=== PATIENT | female | born 1965 | race Asian ===

== ENCOUNTER → 2020-06-04 10:35 | Outpatient (BNVA) | payer OTHER, SELFPAY | PROVIDERS: Visit Provider Internal Medicine Endocrinology, Diabetes & Metabolism ==

== ENCOUNTER → 2020-09-20 10:55 | Outpatient (BNVA) | payer OTHER, SELFPAY | PROVIDERS: PCP Nurse Practitioner Gerontology; Visit Provider Internal Medicine Endocrinology, Diabetes & Metabolism | DX: E11.65 Type 2 diabetes mellitus with hyperglycemia (principal); E11.21 Type 2 diabetes mellitus with diabetic nephropathy; E11.3293 Type 2 diabetes mellitus with mild nonproliferative diabetic retinopathy without macular edema, bilateral; E11.22 Type 2 diabetes mellitus with diabetic chronic kidney disease; I12.9 Hypertensive chronic kidney disease with stage 1 through stage 4 chronic kidney disease, or unspecified chronic kidney disease; N18.30 Chronic kidney disease, stage 3 unspecified; E78.5 Hyperlipidemia, unspecified | CPT/HCPCS: 82947; 99212 ==

== ENCOUNTER → 2021-01-27 11:03 | Outpatient (BNVA) | payer OTHER, SELFPAY | PROVIDERS: PCP Nurse Practitioner Gerontology; Visit Provider Nurse Practitioner Gerontology ==

== ENCOUNTER → 2021-06-02 11:01 | Outpatient (BNVA) | payer OTHER, SELFPAY | PROVIDERS: PCP Nurse Practitioner Gerontology; Visit Provider Internal Medicine Endocrinology, Diabetes & Metabolism | DX: E11.65 Type 2 diabetes mellitus with hyperglycemia (principal); Z79.84 Long term (current) use of oral hypoglycemic drugs | CPT/HCPCS: 82947; 83036; 99212 ==

== ENCOUNTER → 2022-08-28 08:55 | Outpatient (BNVA) | payer OTHER, SELFPAY | PROVIDERS: PCP Nurse Practitioner Gerontology; Visit Provider Internal Medicine Endocrinology, Diabetes & Metabolism | DX: E11.65 Type 2 diabetes mellitus with hyperglycemia (principal); Z79.84 Long term (current) use of oral hypoglycemic drugs | CPT/HCPCS: 82947; 83036; 99212 ==

== ENCOUNTER 2023-06-16 09:09 | Outpatient (REF) | payer OTHER, SELFPAY ==
[2023-06-16 12:03] LABS: Anion Gap 14 (12-20); Blood Urea Nitrogen 49 mg/dL (9-16); Calcium 9.2 mg/dL (8.4-10.2); Carbon Dioxide 25 mmol/L (22-29); Chloride 106 mmol/L (96-108); Cholesterol 252 mg/dL (<200); Estimated Glomerular Filt Rate 30; Glucose Random 112 mg/dL (60-115); HDL Cholesterol 63 mg/dL (>40); LDL Cholesterol Calculated 156 mg/dL (<100); Sodium 140 mmol/L (135-145); Triglycerides 169 mg/dL (<150)
[2023-06-16 12:12] LABS: Creatinine Urine 112.73 mg/dL
[2023-06-16 12:28] LABS: Microalbum/Creatinine Ratio Ur 691.9 ug/mg cr (<30)
[2023-06-20 21:43] LABS: Glutamic acid decarboxylase Ab <5 IU/mL (<5)
== END 2023-06-16 09:10 | disposition home or self-care (01) ==
LOC: HO.10HDL 09:09
PROVIDERS: Visit Provider Internal Medicine Endocrinology, Diabetes & Metabolism
DX: E11.65 Type 2 diabetes mellitus with hyperglycemia (principal)
CPT/HCPCS: 36415; 80048; 80061; 82043; 82570; 86341

== ENCOUNTER 2023-07-01 09:24 | Outpatient (AMB) | payer OTHER, SELFPAY ==
[2023-07-01 09:26] VITALS: BP 148/62; PULSE 68; BMI 18.9
--- NOTE | 2023-07-01 09:26 | A.OFFVIS_ITS ---
Vital Signs 07/01/23 09:26 Height 5 ft 2 in Weight 103 lb 9.876 oz BMI 18.9 BP 148/62 H Blood Pressure Location Lt brachial Position Sitting Pulse 68 Pulse Source Pulse Oximeter Intake Visit Reasons: DM-lvm Intake Note: Patient presents today to follow up on D2MT. Last Diabetic Eye exam: 04/2023 Last Podiatry Visit: 04/2023 Random Glucose: 115 mg/dl HgA1c: 7.5% Radio Assembler Required: No Accompanied by: Self / Same As Patient Allergies lactose Allergy (Unknown, Verified 07/01/23 09:32) Unknown Medication List - Last Reconciled 07/01/23 by Regan Martinez MD alcohol swabs (Alcohol Prep Pads) 150 pad topical BID blood sugar diagnostic (FreeStyle Lite Strips) 1 strip miscellaneous QID 30 days blood-glucose meter (FreeStyle Lite Meter kit) As directed estradiol (Yuvafem) 10 mcg vaginal glimepiride 2 mg (2 x 1 mg) PO DAILY lancets (FreeStyle Lancets) 3 TIMES A DAY lancets (FreeStyle Lancets) USE DIRECTED 4 TIMES A DAY linagliptin (Tradjenta) 5 mg PO DAILY lisinopril 10 mg PO DAILY loratadine 10 mg PO DAILY pravastatin 20 mg PO BEDTIME HPI Comments Details: 57-year-old female today for follow-up visit, for diabetes management. She is feeling well. She has no complaints. Unfortunately, she did not bring a meter or a log book to follow-up visit She has DM type 2 diagnosed 2014. She has other PMH of asthma, hypertension, hyperlipidemia, CKD 3 . She is Currently on Glimepiride 2 mg daily, Tradjenta 5 mg daily. Metformin was stopped by PCP due to decrease GFR. She has diabetic retinopathy, and nephropathy. Last ophthalmology evaluation: needs to make appt retinopathy is stable. Pending note for review. She has nocturia 1 to 2 times, denies polydipsia, polyuria, denies numbness, tingling. Has hypoglycemia rare . Drink OJ to correct. Waits 10 min to check Laboratory Tests 12/12/18 12/12/18 12/12/18 10:22 11:51 11:51 Hgb Hct Sodium 139 Potassium 5.1 Creatinine 1.53 H POC Glucose Hgb A1c Fingerstick 8.0 Fructosamine Calcium 9.4 Triglycerides 139 Cholesterol 214 LDL Cholesterol Direct LDL Cholesterol, Calc 125 HDL Cholesterol 62 Ur Random Creatinine 33.38 Ur Random Microalbumin 28.0 Microalb/Creat Ratio 83.8 12/12/18 12/12/18 02/06/19 11:51 11:51 11:06 Hgb 10.6 L Hct 31.8 L Sodium Potassium Creatinine POC Glucose 159 H Hgb A1c Fingerstick Fructosamine 324 H Calcium Triglycerides Cholesterol LDL Cholesterol Direct 117 H LDL Cholesterol, Calc HDL Cholesterol Ur Random Creatinine Ur Random Microalbumin Microalb/Creat Ratio FOR[facility]LY [facility], [facility] Medical History (Updated 06/04/20 @ 10:56 by Manuelito Marcelino MD) CKD stage 3 due to type 2 diabetes mellitus Dyslipidemia Hypertension Non-proliferative diabetic retinopathy, both eyes Diabetic nephropathy associated with type 2 diabetes mellitus Diabetes type 2, uncontrolled Surgical History Hx of eye surgery Family History Father Lung cancer Mother Diabetes mellitus Heart disease Family/Other Pancreatic cancer Social History Household Members: Children Alcohol intake: never Patient Tobacco Use Status: Never used Tobacco Physical Exam Absence of Cushingoid features. Absence of acromegalic features. Neck exam reveals nl size thyroid about 15 gms. No thyroid nodules palpable. No carotid bruits present. Lungs CTA. Heart S1 S2, Reg R/R. No M/R/ G. Skin exam reveals absence of vitiligo or acanthosis nigricans. Abdominal exam reveals Soft NT/ND with NA BS. No organomegaly present. Neck Other: . Extrem Other: Visual exam of foot performed. No ulcerations or open lesions. R 1st toe with blister No onchomycosis, no callouses.Pulses 2 + distally Sensation intact to monofilament exam. Vibratory sensation sensed is decreased with 128 Hz tuning fork. Results AMB Hemoglobin A1c AMB Hemoglobin A1c 7.5 % Last Edit by SHAYNA Munoz on 07/01/23 09:45 Assessment & Plan Assessment & Plan (1) Diabetes type 2, uncontrolled: Code(s): E11.65 - Type 2 diabetes mellitus with hyperglycemia Category: Medical Plan: This is a 57-year-old female with a history of type 2 diabetes being treated with glimepiride and Tradjenta with good but not adequate glycemic control and known microvascular complications namely retinopathy and CKD stage IIIB. Plan is that the patient check her point of cares pre and post meals and debride the glucometer with her to follow-up appointments. I attempted to prescribe Nydia 3. Will switch glimepiride and Tradjenta to Ozempic 0.25 mg Q weekly as well as Farxiga 5 mg q.d. for renal protection. Went over side effects of Ozempic including but not limited to nausea, vomiting and rare risk of pancreatitis and side effects of Farxiga including but not limited to dehydration, DKA as well as Monroe's gangrene . Will have to adjust regimen plan based on insurance coverage as well for above. Patient is going to meet with meter tester in the next week to learn how to place the Nydia sensor and also how to inject the Ozempic (2) Dyslipidemia: Code(s): E78.5 - Hyperlipidemia, unspecified Category: Medical Plan: LDL not at goal on pravastatin 20 mg. Will switch pravastatin to atorvastatin 20 mg recheck lipid profile in 2 months Orders: Orders AMB Hemoglobin A1c Today E11.65 - Type 2 diabetes mellitus with hyperglycemia, Z13.9 - Encounter for screening, unspecified Basic Metabolic Panel 10 Days E11.65 - Type 2 diabetes mellitus with hyperglycemia Lipid Panel 2 Months E11.65 - Type 2 diabetes mellitus with hyperglycemia Medications: New semaglutide (Ozempic) for 4 weeks 0.25 mg (0.368 mL) subcut QWEEK 3 mL 4RF dapagliflozin propanediol (Farxiga) 5 mg PO DAILY 30 tabs 4RF atorvastatin 20 mg PO DAILY 30 tabs 5RF blood-glucose sensor (FreeStyle Nydia 3 Sensor device) As directed change every 14 days 2 ea 5RF Discontinued glimepiride Discontinued Reason: Doctor's Order 2 mg (2 x 1 mg) PO DAILY 180 tabs 1RF E11.65 - Type 2 diabetes mellitus with hyperglycemia linagliptin (Tradjenta) Discontinued Reason: Doctor's Order 5 mg PO DAILY 30 tabs 3RF E11.65 - Type 2 diabetes mellitus with hyperglycemia pravastatin Discontinued Reason: Doctor's Order 20 mg PO BEDTIME 90 tabs 1RF E11.65 - Type 2 diabetes mellitus with hyperglycemia Coding Level of Care Code Est Pt Level 4 (69877) Diagnoses Diabetes type 2, uncontrolled E11.65 Dyslipidemia E78.5
[2023-07-01 09:39] LABS: Glucose, Whole Blood 115 mg/dL (60-115)
== END 2023-07-01 10:20 | disposition home or self-care (01) ==
PROVIDERS: PCP Nurse Practitioner Gerontology; Visit Provider Internal Medicine Endocrinology, Diabetes & Metabolism
DX: E11.65 Type 2 diabetes mellitus with hyperglycemia (principal); E78.5 Hyperlipidemia, unspecified; Z13.9 Encounter for screening, unspecified
CPT/HCPCS: 99214

== ENCOUNTER → 2023-07-01 09:24 | Outpatient (BNVA) | payer OTHER, SELFPAY | PROVIDERS: PCP Nurse Practitioner Gerontology; Visit Provider Internal Medicine Endocrinology, Diabetes & Metabolism | DX: E11.65 Type 2 diabetes mellitus with hyperglycemia (principal); E11.22 Type 2 diabetes mellitus with diabetic chronic kidney disease; N18.32 Chronic kidney disease, stage 3b; E11.319 Type 2 diabetes mellitus with unspecified diabetic retinopathy without macular edema; E78.5 Hyperlipidemia, unspecified; Z79.84 Long term (current) use of oral hypoglycemic drugs | CPT/HCPCS: 82947; 83036; 99212 ==

== ENCOUNTER 2023-07-07 15:45 | Outpatient (AMB) | payer OTHER, SELFPAY ==
--- NOTE | 2023-07-07 16:32 | A.OFFVIS_ITS ---
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: No Accompanied by: Self / Same As Patient Allergies lactose Allergy (Unknown, Verified 07/01/23 09:32) Unknown HPI Comprehensive Diabetes Asmnt Most Recent Diabetes Results: Microalb/Creat Ratio 691.9 ug/mg cr (<30) H 06/16/23 Cholesterol 252 mg/dL (<200) H 06/16/23 HDL Cholesterol 63 mg/dL (>40) 06/16/23 Triglycerides 169 mg/dL (<150) H 06/16/23 Creatinine 1.74 mg/dL (0.5-1.4) H 06/16/23 Blood Urea Nitrogen 49 mg/dL (9-16) H 06/16/23 Sodium 140 mmol/L (135-145) 06/16/23 Potassium 5.0 mmol/L (3.3-5.1) 06/16/23 Chloride 106 mmol/L (96-108) 06/16/23 Carbon Dioxide 25 mmol/L (22-29) 06/16/23 Calcium 9.2 mg/dL (8.4-10.2) 06/16/23 [facility] Medical History (Updated 06/04/20 @ 10:56 by Manuelito Marcelino MD) CKD stage 3 due to type 2 diabetes mellitus Dyslipidemia Hypertension Non-proliferative diabetic retinopathy, both eyes Diabetic nephropathy associated with type 2 diabetes mellitus Diabetes type 2, uncontrolled Surgical History Hx of eye surgery Family History Father Lung cancer Mother Diabetes mellitus Heart disease Family/Other Pancreatic cancer Social History Household Members: Children Alcohol intake: never Patient Tobacco Use Status: Never used Tobacco Assessment & Plan Assessment & Plan (1) Diabetes type 2, uncontrolled: Code(s): E11.65 - Type 2 diabetes mellitus with hyperglycemia Plan: Insulin/Incretin?Mimetic Education visit Patient Education: Patient was instructed and provided with demonstration of the following: Insulin action and Incretin Mimetics medication storage how to set up medication pen/or syringe and vial Handwashing insulin injection site rotation Site rotation recognizing hypertrophy Testing blood glucose Removing and disposing needle from insulin pen Safe disposal of sharps Target blood sugar Signs/ symptoms/treatment of hypoglycemia/hyperglycemia expiration of open insulin pen Patient verbalized understanding of education provided and was able to demonstrate proper use of inject into injection pillow Reviewed rule of 15s to treat glucose under 70 mg/dL Patient will start Ozempic 0.25 mg for 4 weeks, after 4 weeks she will increase to 0.5 mg All questions were answered and patient was advised to contact the office with any questions or concerns. Patient at visit to set up an insert Nydia 3, will set up sharing at next visit Instructed patient sensors water proof you can shower, or swim do not submerge sensor in water for over 30 minutes Is sensor falls off cannot put back in you need to replace sensor, customer service number given to patient for sensor replacement Sensor placed on the Lower R Abd Patient left visit with sensor in warmup Reviewed how to interpret trend arrows Reminded patient that to check finger sticks if symptoms do not match sensor reading. Discussed lag time between finger stick and sensor data.? Instructed patient she should always keep blood glucometer for backup testing if needed Reviewed delay of CGM from fingersticks Reminded pt that if symptoms do not match sensor still needs to check fingersticks. Patient Instructions: Patient instruction: CGM provides information on blood glucose control throughout the day, including hyperglycemia and hypoglycemia. ? Continue to monitor blood glucose as instructed. Follow nutrition guidelines provided. Report any discomfort promptly to health care provider. ?Stay well-hydrated. You can bathe ,shower, swim and exercise while wearing the glucose sensor. Do not submerge glucose sensor in water for more than 30 minutes. Coding Level of Care Code Est Pt Level 1 (09521) Diagnoses Diabetes type 2, uncontrolled E11.65
== END 2023-07-07 16:34 | disposition home or self-care (01) ==
PROVIDERS: PCP Nurse Practitioner Gerontology; Visit Provider Registered Nurse Diabetes Educator
DX: E11.65 Type 2 diabetes mellitus with hyperglycemia (principal)

== ENCOUNTER → 2023-07-07 15:45 | Outpatient (BNVA) | payer OTHER, SELFPAY | PROVIDERS: PCP Nurse Practitioner Gerontology; Visit Provider Registered Nurse Diabetes Educator | DX: E11.65 Type 2 diabetes mellitus with hyperglycemia (principal); E11.22 Type 2 diabetes mellitus with diabetic chronic kidney disease; E11.21 Type 2 diabetes mellitus with diabetic nephropathy; E11.3293 Type 2 diabetes mellitus with mild nonproliferative diabetic retinopathy without macular edema, bilateral; I12.9 Hypertensive chronic kidney disease with stage 1 through stage 4 chronic kidney disease, or unspecified chronic kidney disease; N18.30 Chronic kidney disease, stage 3 unspecified | CPT/HCPCS: 99211 ==

== ENCOUNTER 2023-12-29 10:49 | Outpatient (AMB) | payer OTHER, SELFPAY ==
--- NOTE | 2023-12-29 10:54 | A.OFFVIS_ITS ---
Vital Signs 12/29/23 11:00 Height 5 ft 2 in Weight 101 lb 6.602 oz BMI 18.5 BP 130/70 Blood Pressure Location Rt brachial Position Sitting Pulse 74 Pulse Source Pulse Oximeter Intake Visit Reasons: T2DM/LVM Intake Note: Patient presents today to follow up on D2MT. Last Diabetic Eye exam: 04/2023 Last Podiatry Visit: 04/2023 Most Recent HgA1c: 7.5%, 12/29/2023 Random Glucose: 85 mg/dL, Today High Speed Warper Tender Required: No Accompanied by: Self / Same As Patient Allergies lactose Allergy (Unknown, Verified 07/01/23 09:32) Unknown HPI Comments Details: 58-year-old female today presenting for diabetes Medical history: asthma, hypertension, hyperlipidemia, CKD 3 Diagnosed with diabetes 2015 Seen six months ago by Dr Martinez. A1C at 7.5%. Plan was to switch glimeperide, tradjenta to ozempic, farxiga and start CGM. ozempic wasnt covered patient tried trulicity but caused too much nausea & GI upset. Stopped farxiga due to vaginal yeast infections. Ultimately went back on glimepiride and tradjenta though the latter she does not use consistently. Was on Metformin in past was stopped by PCP due to decrease GFR. Her A1C today is 7.5% Her traditional glucometer downloaded (this broke yesterday). It shows average 119 with 1.6 readings/day range of 75-300. Hyperglycemia occuring 12-4pm. No lows She is interested in pursuing insulin therapy. Micro/macrovascular: She has diabetic retinopathy, and nephropathy. Last ophthalmology evaluation: UTD. . She has nocturia 1 to 2 times, denies polydipsia, polyuria, denies numbness, tingling. Has hypoglycemia rare. Drink OJ to correct. Waits 10 min to check ROS CONSTITUTIONAL: Denies weight loss, fever and chills. HEENT: Denies changes in vision and hearing. RESPIRATORY: Denies SOB and cough. CV: Denies palpitations and CP GI: Denies abdominal pain, nausea, vomiting and diarrhea. : Denies dysuria and urinary frequency. MSK: Denies new myalgia and joint pain. SKIN: Denies rash and pruritus. NEUROLOGICAL: Denies headache PSYCHIATRIC: Denies recent changes in mood. PHYSICAL EXAM: GENERAL: Alert and oriented x 3. NAD EYES: EOMI. Anicteric. HENT: Moist mucous membranes. No scleral icterus. No cervical lymphadenopathy. LUNGS: Clear to auscultation bilaterally. CARDIOVASCULAR: Regular rate and rhythm. soft diastolic murmur. No JVD. ABDOMEN: Soft, non-tender +bs EXTREMITIES: No edema. Non-tender. SKIN: No rashes or lesions. Warm. NEUROLOGIC: No focal neurological deficits. CN II-XII grossly intact PSYCHIATRIC: Cooperative. Appropriate mood and affect [facility] Medical History (Updated 12/29/23 @ 11:21 by Mindy Huitrno MD) CKD stage 3 due to type 2 diabetes mellitus Dyslipidemia Hypertension Non-proliferative diabetic retinopathy, both eyes Diabetic nephropathy associated with type 2 diabetes mellitus Diabetes type 2, uncontrolled Surgical History Hx of eye surgery Family History Father Lung cancer Mother Diabetes mellitus Heart disease Family/Other Pancreatic cancer Social History Household Members: Children Alcohol intake: never Patient Tobacco Use Status: Never used Tobacco Results AMB Hemoglobin A1c AMB Hemoglobin A1c 7.5 % Last Edit by SHAYNA Joshua on 12/29/23 11:26 Assessment & Plan Assessment & Plan (1) Diabetic nephropathy associated with type 2 diabetes mellitus: Code(s): E11.21 - Type 2 diabetes mellitus with diabetic nephropathy Category: Medical Plan: Goal <7.0% She will stop tradjenta, continue glimepiride. Once she has obtained CGM she will start insulin at 10units nightly She will monitor glucose closely to make sure she is not getter hypoglycemic Follow up in 4 weeks for review/adjustments prn. (2) CKD stage 3 due to type 2 diabetes mellitus: Code(s): E11.22 - Type 2 diabetes mellitus with diabetic chronic kidney disease; N18.30 - Chronic kidney disease, stage 3 unspecified Category: Medical Plan: see above. tighten glycemic control. Orders: Orders AMB Hemoglobin A1c Today E11.65 - Type 2 diabetes mellitus with hyperglycemia Medications: New insulin glargine (Lantus Solostar U-100 Insulin) 10 units (0.1 mL) subcut QPM 90 days 9 mL 3RF pen needle, diabetic (BD Ultra-Fine Monica Pen Needle) As directed once daily 100 ea 3RF E11.9 - Type 2 diabetes mellitus without complications, Z79.4 - [facility] (current) use of insulin FreeStyle Nydia 3 [place] (blood-glucose meter,continuous) As directed 1 ea 0RF NS E11.65 - Type 2 diabetes mellitus with hyperglycemia, E11.9 - Type 2 diabetes mellitus without complications, Z79.4 - superintendent terminal (current) use of insulin FreeStyle Nydia 3 [place] (blood-glucose meter,continuous) As directed 1 ea 0RF NS E11.65 - Type 2 diabetes mellitus with hyperglycemia, E11.9 - Type 2 diabetes mellitus without complications, Z79.4 - superintendent terminal (current) use of insulin Changed From blood-glucose sensor (FreeStyle Nydia 3 Sensor device) As directed change every 14 days 2 ea 5RF E11.65 - Type 2 diabetes mellitus with hyperglycemia, E11.9 - Type 2 diabetes mellitus without complications, Z79.4 - [facility] (current) use of insulin To FreeStyle Nydia 3 Sensor (blood-glucose sensor) As directed change every 14 days 6 ea 3RF NS E11.65 - Type 2 diabetes mellitus with hyperglycemia, E11.9 - Type 2 diabetes mellitus without complications, Z79.4 - superintendent terminal (current) use of insulin Refilled FreeStyle Nydia 3 Sensor (blood-glucose sensor) As directed change every 14 days 6 ea 3RF NS E11.65 - Type 2 diabetes mellitus with hyperglycemia, E11.9 - Type 2 diabetes mellitus without complications, Z79.4 - [facility] (current) use of insulin Discontinued linagliptin (Tradjenta) Discontinued Reason: Doctor's Order 5 mg PO DAILY 30 tabs 0RF Coding Level of Care Code Est Pt Level 4 (20524) Diagnoses Diabetic nephropathy associated with type 2 diabetes mellitus E11.21 CKD stage 3 due to type 2 diabetes mellitus E11.22; N18.30
[2023-12-29 11:00] VITALS: BP 130/70; PULSE 74; BMI 18.5
[2023-12-29 11:07] LABS: Glucose, Whole Blood 85 mg/dL (60-115)
== END 2023-12-29 11:33 | disposition home or self-care (01) ==
PROVIDERS: PCP Nurse Practitioner Gerontology; Visit Provider Internal Medicine
DX: E11.21 Type 2 diabetes mellitus with diabetic nephropathy (principal); E11.22 Type 2 diabetes mellitus with diabetic chronic kidney disease; N18.30 Chronic kidney disease, stage 3 unspecified; E11.65 Type 2 diabetes mellitus with hyperglycemia

== ENCOUNTER → 2023-12-29 10:49 | Outpatient (BNVA) | payer OTHER, SELFPAY | PROVIDERS: PCP Nurse Practitioner Gerontology; Visit Provider Internal Medicine | DX: E11.22 Type 2 diabetes mellitus with diabetic chronic kidney disease (principal); N18.30 Chronic kidney disease, stage 3 unspecified; E11.21 Type 2 diabetes mellitus with diabetic nephropathy | CPT/HCPCS: 82947; 83036; 99212 ==

== ENCOUNTER → 2024-02-16 09:45 | Outpatient (BNVA) | payer OTHER, SELFPAY | PROVIDERS: PCP Nurse Practitioner Gerontology; Visit Provider Internal Medicine | DX: E11.65 Type 2 diabetes mellitus with hyperglycemia (principal) | CPT/HCPCS: 82947; 99211 ==

== ENCOUNTER 2024-02-16 13:18 | Outpatient (AMB) | payer OTHER, SELFPAY ==
--- NOTE | 2024-02-16 14:10 | A.OFFVIS_ITS ---
Intake Intake Visit Reasons: DM Router Operator Required: No Accompanied by: Self / Same As Patient Allergies lactose Allergy (Unknown, Verified 02/16/24 09:51) Unknown HPI Comprehensive Diabetes Asmnt Most Recent Diabetes Results: Microalb/Creat Ratio 691.9 ug/mg cr (<30) H 06/16/23 Cholesterol 252 mg/dL (<200) H 06/16/23 HDL Cholesterol 63 mg/dL (>40) 06/16/23 Triglycerides 169 mg/dL (<150) H 06/16/23 Creatinine 1.74 mg/dL (0.5-1.4) H 06/16/23 Blood Urea Nitrogen 49 mg/dL (9-16) H 06/16/23 Sodium 140 mmol/L (135-145) 06/16/23 Potassium 5.0 mmol/L (3.3-5.1) 06/16/23 Chloride 106 mmol/L (96-108) 06/16/23 Carbon Dioxide 25 mmol/L (22-29) 06/16/23 Calcium 9.2 mg/dL (8.4-10.2) 06/16/23 [facility] Medical History CKD stage 3 due to type 2 diabetes mellitus Dyslipidemia Hypertension Non-proliferative diabetic retinopathy, both eyes Diabetic nephropathy associated with type 2 diabetes mellitus Diabetes type 2, uncontrolled Surgical History Hx of eye surgery Family History Father Lung cancer Mother Diabetes mellitus Heart disease Family/Other Pancreatic cancer Social History Household Members: Children Alcohol intake: never Patient Tobacco Use Status: Never used Tobacco Assessment & Plan Assessment & Plan (1) Diabetes type 2, uncontrolled: Code(s): E11.65 - Type 2 diabetes mellitus with hyperglycemia Plan: Insulin/Incretin?Mimetic Education visit Patient Education: Patient will start Lantus 10 units daily Patient was instructed and provided with demonstration of the following: Insulin action and Incretin Mimetics medication storage how to set up medication pen/or syringe and vial Handwashing insulin injection site rotation Site rotation recognizing hypertrophy Testing blood glucose Removing and disposing needle from insulin pen Safe disposal of sharps Target blood sugar Signs/ symptoms/treatment of hypoglycemia/hyperglycemia expiration of open insulin pen Patient verbalized understanding of education provided and was able to demonstrate proper use of inject into injection pillow Reviewed rule of 15s to treat glucose under 70 mg/dL All questions were answered and patient was advised to contact the office with any questions or concerns. Patient at visit to set up an Framebench Nydia 3, with smartphone iliana Instructed patient sensors water proof you can shower, or swim do not submerge sensor in water for over 30 minutes Is sensor falls off cannot put back in you need to replace sensor, customer service number given to patient for sensor replacement Sensor placed on the lower R abd Patient left visit with sensor in warmup Reviewed how to interpret trend arrows Reminded patient that to check finger sticks if symptoms do not match sensor reading. Discussed lag time between finger stick and sensor data.? Instructed patient she should always keep blood glucometer for backup testing if needed Reviewed delay of CGM from fingersticks Reminded pt that if symptoms do not match sensor still needs to check fingersticks. Portions of this note were created using voice recognition software, please excuse any words or phrases that may have been misinterpreted. Patient Instructions: How to Use Your Insulin Pen Supplies you will need: alcohol, alcohol wipes, insulin pen, pen needle * Wash your hands * Remove cap from the top of the pen * Clean the top of the pen with alcohol swab * Remove paper tab from pen needle base * Screw pen needle firmly on to pen * Remove outer cover of pen needle put it aside, discard little cover from pen needle * Dial base of needle to 2 units, press and make sure you see a drip at top of needle * Check to see the dial return to zero * Dial your correct insulin dose at base of pen * Clean injection site with alcohol or hot soapy water, remember always to rotate injection sites with every injection * Inject needle at 90? angle into chosen injection site * Press the button on the bottom of the pen * After you press the button count to 10 and then remove needle from your skin * Put the large needle cap back over needle and unscrew counterclockwise to remove pen needle * Replace insulin pen cover * Write the date on the pen when you opened or expiration date. Once insulin pens are open they can be left at room temperature. Please see below: * Levemir and Toujeo are good for 42 days * Tresiba eight weeks * Humalog, Novolog, Lantus and Basaglar are good for 28 days * Humulin N (NPH) pen for 14 days * Mix insulin pens, such as NovoLog 70/30 or Humalog 75/25, are good for 10-14 daysStore unopened pens in the refrigerator until expiration date on the box. Hypoglycemia or blood glucose under 70 use the rule of 15's: If you have your blood glucose meter test your blood glucose, if you do not have your meter still follow below instruction: Keep quick-sugar foods with you at all times.? Take 15 grams of fast acting carbohydrates. Examples are 4 ounces of fruit juice or regular soda pop, 8 ounces fat-free milk, 1 tablespoon of table sugar, honey or corn syrup, jam, one miniature box of raisins, 7-8 gumdrops or Life Savers candy, 4 glucose tablets, and glucose gel.? Retest blood glucose in 15 minutes, if blood glucose is still under 80, repeat rule of 15's. If blood glucose is under 50, take 30 grams of fast acting carbohydrates If you are having hypoglycemia, or insulin reaction, more then a few times a week, call MD or religious educator Coding Level of Care Code Est Pt Level 1 (39536) Diagnoses Diabetes type 2, uncontrolled E11.65
== END 2024-02-16 14:12 | disposition home or self-care (01) ==
LOC: HO.ENCR 13:18
PROVIDERS: PCP Nurse Practitioner Gerontology; Visit Provider Registered Nurse Diabetes Educator
DX: E11.65 Type 2 diabetes mellitus with hyperglycemia (principal)

== ENCOUNTER → 2024-04-12 09:04 | Outpatient (BNVA) | payer OTHER, SELFPAY | PROVIDERS: PCP Nurse Practitioner Gerontology; Visit Provider Internal Medicine | DX: E11.22 Type 2 diabetes mellitus with diabetic chronic kidney disease (principal); E11.65 Type 2 diabetes mellitus with hyperglycemia; E78.5 Hyperlipidemia, unspecified; I12.9 Hypertensive chronic kidney disease with stage 1 through stage 4 chronic kidney disease, or unspecified chronic kidney disease; N18.30 Chronic kidney disease, stage 3 unspecified; Z79.4 Long term (current) use of insulin | CPT/HCPCS: 82947; 83036; 99212 ==

== ENCOUNTER 2024-08-02 09:08 | Outpatient (AMB) | payer OTHER, SELFPAY ==
--- NOTE | 2024-08-02 09:10 | A.OFFVIS_ITS ---
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 Forgets lantus frequently Previous medications: tradjenta-see above. Trulicity caused too much nausea & GI upset. Stopped farxiga due to vaginal yeast infections. Was previously on metformin. Her A1C today is 7.6 down 8.0%, from 7.5% Her traditional glucometer downloaded. It shows 79-285 with average 150. No interval hypoglycemia. Corrects with juice. Micro/macrovascular: She has diabetic retinopathy, and nephropathy. Last ophthalmology evaluation: UTD. She has nocturia 1 to 2 times, denies polydipsia, polyuria, denies numbness, tingling. Has hypoglycemia rare. Drink OJ to correct. Waits 10 min to check ROS CONSTITUTIONAL: Denies weight loss, fever and chills. HEENT: Denies changes in vision and hearing. RESPIRATORY: Denies SOB and cough. CV: Denies palpitations and CP GI: Denies abdominal pain, nausea, vomiting and diarrhea. : Denies dysuria and urinary frequency. MSK: Denies new myalgia and joint pain. SKIN: onychomycoses NEUROLOGICAL: Denies headache PSYCHIATRIC: Denies recent changes in mood. PHYSICAL EXAM: GENERAL: Alert and oriented x 3. NAD EYES: EOMI. Anicteric. HENT: Moist mucous membranes. No scleral icterus. No cervical lymphadenopathy. LUNGS: Clear to auscultation bilaterally. CARDIOVASCULAR: Regular rate and rhythm. soft diastolic murmur. No JVD. ABDOMEN: Soft, non-tender +bs EXTREMITIES: No edema. Non-tender. SKIN: great toe onychomycosis NEUROLOGIC: No focal neurological deficits. CN II-XII grossly intact PSYCHIATRIC: Cooperative. Appropriate mood and affect [facility] Medical History CKD stage 3 due to type 2 diabetes mellitus Dyslipidemia Hypertension Non-proliferative diabetic retinopathy, both eyes Diabetic nephropathy associated with type 2 diabetes mellitus Diabetes type 2, uncontrolled Surgical History Hx of eye surgery Family History Father Lung cancer Mother Diabetes mellitus Heart disease Family/Other Pancreatic cancer Social History Household Members: Children Alcohol intake: never Patient Tobacco Use Status: Never used Tobacco Physical Exam Vital Signs: Last Vital Signs Pulse 63 08/02/24 09:11 BP 146/72 H 08/02/24 09:11 Pulse Ox 99 08/02/24 09:11 Oxygen Delivery Method Room Air 08/02/24 09:11 BMI result Body Mass Index 18.9 Results AMB Hemoglobin A1c AMB Hemoglobin A1c 7.6 % Last Edit by SHAYNA Joshua on 08/02/24 09:34 Results Reviewed Results Reviewed: Laboratory Last Values Glucose (Clinic) 83 mg/dL (60-115) 08/02/24 09:19 Assessment & Plan Assessment & Plan (1) Diabetic nephropathy associated with type 2 diabetes mellitus: Code(s): E11.21 - Type 2 diabetes mellitus with diabetic nephropathy Category: Medical (2) Insulin use (long-term) in type 2 diabetes: Code(s): E11.9 - Type 2 diabetes mellitus without complications; Z79.4 - termite control representative (current) use of insulin Category: Medical Qualifiers: Diabetes mellitus complication status: with ophthalmic complications Diabetes mellitus complication detail: with diabetic retinopathy Diabetic retinopathy severity: with unspecified retinopathy severity Diabetes mellitus macular edema: macular edema presence unspecified Laterality: unspecified laterality Qualified Code(s): E11.319 - Type 2 diabetes mellitus with unspecified diabetic retinopathy without macular edema; Z79.4 - snf (current) use of insulin Plan 59 y/o IDDM with suboptimal though improved glycemic control Increase glimepiride to 8mg daily continue tradjenta, insulin though she is missing the latter frequently Return in 3 months with labs prior Orders: Orders AMB Hemoglobin A1c Today E11.65 - Type 2 diabetes mellitus with hyperglycemia Microalbumin, Random (w Creat) Today E11.21 - Type 2 diabetes mellitus with diabetic nephropathy, E11.22 - Type 2 diabetes mellitus with diabetic chronic kidney disease, N18.30 - Chronic kidney disease, stage 3 unspecified Hemoglobin A1c Today E11.21 - Type 2 diabetes mellitus with diabetic nephropathy, E11.22 - Type 2 diabetes mellitus with diabetic chronic kidney disease, N18.30 - Chronic kidney disease, stage 3 unspecified Comprehensive Met. Panel Today E11.21 - Type 2 diabetes mellitus with diabetic nephropathy, E11.22 - Type 2 diabetes mellitus with diabetic chronic kidney disease, N18.30 - Chronic kidney disease, stage 3 unspecified Referrals Podiatry Referral B35.1 - Tinea unguium, E11.21 - Type 2 diabetes mellitus with diabetic nephropathy, E11.22 - Type 2 diabetes mellitus with diabetic chronic kidney disease, N18.30 - Chronic kidney disease, stage 3 unspecified Medications: New glimepiride 8 mg (2 x 4 mg) PO DAILY 180 tabs 3RF Discontinued glimepiride Discontinued Reason: Doctor's Order 4 mg (2 x 2 mg) PO DAILY 180 tabs 3RF Coding Level of Care Code Est Pt Level 4 (30127) Diagnoses Diabetic nephropathy associated with type 2 diabetes mellitus E11.21 Type 2 diabetes mellitus with retinopathy, with long-term current use of insulin, macular edema presence unspecified, unspecified laterality, unspecified retinopathy severity E11.319; Z79.4 Diabetes mellitus complication status: with ophthalmic complications Diabetes mellitus complication detail: with diabetic retinopathy Diabetic retinopathy severity: with unspecified retinopathy severity Diabetes mellitus macular edema: macular edema presence unspecified Laterality: unspecified laterality
[2024-08-02 09:11] VITALS: BP 146/72; PULSE 63; O2SAT 99; BMI 18.9
[2024-08-02 09:23] LABS: Glucose, Whole Blood 83 mg/dL (60-115)
--- OUTSIDE RECORDS SUMMARY | 2024-08-02 09:42 | XMS_ITS | Continuity of Care Document ---
Author Organization [facility] Address [address] [place] [address]- Care Team Providers Care Appetizer Packer Name Role Phone Amalia DAILEY, Davida León Primary [id number] Date(s): 07/20/24 - 07/27/24 [facility] [address] [place] [address]- Encounter Diagnosis Tick bite of right shoulder(Discharge Diagnosis) - 07/20/24 Tick bite of abdominal wall(Discharge Diagnosis) - 07/20/24 Rash(Discharge Diagnosis) - 07/20/24 Attending Physician: Bina De Dios Referring Physician: Davida Holland NP Encounter Type: Office Visit Allergies, Adverse Reactions, Alerts No Known Allergies Immunizations Given and Recorded Vaccine Date Status Refusal Reason SARS-CoV-2 (COVID-19) mRNA BNT-162b2 vac 03/03/21 Recorded SARS-CoV-2 (COVID-19) mRNA BNT-162b2 vac 07/29/20 Recorded SARS-CoV-2 (COVID-19) mRNA BNT-162b2 vac 07/06/20 Recorded Medications Alcohol 70% Prep Pads Alcohol 70% Prep Pads, See Instructions, # 100 each, Refills 5, Tot. Refills 5, Maintenance, use asdirected twice a day for Type 2 Diabetes E11.9, 06/23/23 3:46:00 PM EDT, Supply, 154, cm, 04/27/23 8:11:00 EST, Height, 47.3, kg, 04/27/23 8:11:00 EST, Dry Weight Start Date: 06/23/23 Status: Ordered Quantity: 100.0 Unit: each Repeat number: 6 azelastine 0.05% ophthalmic solution 1 drops, Eyes, Both, 2 times a day, PRN for allergy symptoms, # 6 mL, 6 Refills, Maintenance, 07/06/23 9:27:00 AM EDT, [facility]/pharmacy #[id number], Partial fill upon patient request if the prescription is for a schedule II opioid drug., 1 drops Eyes, Both 2 times a day,PRN:for allergy symptoms, 154, cm, 07/06/23 9:09:00 EDT, Height, 47.3, kg, 04/27/23 8:11:00 EST, Dry Weight Start Date: 07/06/23 Status: Ordered Quantity: 6.0 Unit: mL Repeat number: 7 Ferrous Sulfate ER Refills 0, Maintenance, 09/11/22 6:56:00 AM EDT, Partial fill upon patient request if the prescription is for a schedule II opioid drug. Start Date: 09/11/22 Status: Ordered Repeat number: 1 Freestyle Lancets See Instructions, # 120 each, Refills 3, Tot. Refills 3, Maintenance, E11.9 Test 4 times daily. Dispense 120, 03/27/20 2:38:00 PM EST, Supply, 155, cm, 10/11/19 11:00:00 EDT, Height, 48, kg, 07/28/18 11:08:00 EDT, Dry Weight Start Date: 03/27/20 Status: Ordered Quantity: 120.0 Unit: each Repeat number: 4 glimepiride 1 mg oral tablet 2 tablet, By Mouth, Daily, # 60 tablet, 2 Refills, [id number], 155, cm, 12/26/20 13:47:00 EDT,Height Start Date: 05/29/21 Status: Ordered Quantity: 60.0 Unit: tablet Repeat number: 1 isopropyl alcohol 70% topical pad See Instructions, USE DIRECTED TWICE A DAY, # 100 Unknown, 5 Refills, Maintenance, 02/29/24 9:23:00 AM EST, [id number], 50, USE DIRECTED TWICE A DAY, 154, cm, 09/22/23 10:38:00 EDT, Height, 47.3, kg, 04/27/23 8:11:00 EST, Dry Weight Start Date: 02/29/24 Status: Ordered Quantity: 100.0 Unit: Unknown Repeat number: 1 lisinopril 10 mg oral tablet 10 mg, 1, tablet, By Mouth, Daily, # 30 tablet, Refills 0, Maintenance, 09/22/21 11:47:00 AM EDT, Partial fill upon patient request if the prescription is for a schedule II opioid drug. Start Date: 09/22/21 Status: Ordered Quantity: 30.0 Unit: tablet Repeat number: 1 loratadine 10 mg oral tablet 1, tablet, By Mouth, Daily, # 30 tablet, Refills 5, Tot. Refills 5, Maintenance, 06/23/23 3:46:00 PMEDT, [id number] 154, cm, 04/27/23 8:11:00 EST, Height, 47.3, kg, 04/27/23 8:11:00 EST, Dry Weight Start Date: 06/23/23 Status: Ordered Quantity: 30.0 Unit: tablet Repeat number: 6 Miscellaneous Rx Vitamin D + Magnesium citrate, By Mouth, Daily, 0 Refills, Maintenance, 04/21/23 3:41:00 PM EST Start Date: 04/21/23 Status: Ordered Repeat number: 1 One-A-Day Women 50 Plus By Mouth, Daily, 0 Refills, Maintenance, 04/21/23 3:36:00 PM EST, Partial fill upon patient request if the prescription is for a schedule II opioid drug. Start Date: 04/21/23 Status: Ordered Repeat number: 1 pravastatin 20 mg oral tablet 20 mg, 1, tablet, By Mouth, Daily, # 30 tablet, Refills 3, Tot. Refills 3, Maintenance, 10/04/19 2:53:00 PM EDT, Route to Pharmacy Electronically, [facility]/pharmacy #[id number], 155, cm, 04/05/19 15:00:00 EST, Height, 48, kg, 07/28/18 11:08:00 EDT, Dry Weight Start Date: 10/04/19 Status: Ordered Quantity: 30.0 Unit: tablet Repeat number: 4 Tradjenta 5 mg oral tablet 1 tablet, By Mouth, Daily, # 30 tablet, 3 Refills, Maintenance, 04/25/20 4:11:00 PM EST, [id number], 155, cm, 04/03/20 15:16:00 EST, Height, 48, kg, 07/28/18 11:08:00 EDT, Dry Weight Start Date: 04/25/20 Status: Ordered Quantity: 30.0 Unit: tablet Repeat number: 1 triamcinolone 0.5% topical cream 1 application, Topically, 2 times a day, for 14 days, # 60 Gm, 0 Refills, Acute 08/03/24 12:47:00 PMEDT, 07/20/24 12:47:00 PM EDT, Cream, [facility]/pharmacy #[id number], Partial fill upon patient request if the prescription is for a schedule II opioid drug., 1 application Topically 2 times a day,x14 days, 154, cm, 07/20/24 12:26:00 EDT, Height, 47.3, kg, 04/27/23 8:11:00 EST, Dry Weight Start Date: 07/20/24 Stop Date: 08/03/24 Status: Ordered Quantity: 60.0 Unit: g Repeat number: 1 Indication: Rash and other nonspecific skin eruption Yuvafem 10 mcg vaginal tablet See Instructions, INSERT 1 TABLET VAGINALLY TWICE A WEEK DIRECTED, # 24 tablet, 1 Refills, Maintenance, 01/21/24 12:37:00 PM EST, [id number], 154, cm, 09/22/23 10:38:00 EDT, Height, 47.3, kg,04/27/23 8:11:00 EST, Dry Weight Start Date: 01/21/24 Status: Ordered Quantity: 24.0 Unit: tablet Repeat number: 1 ZyrTEC 10 mg oral tablet 1 tablet = 10 mg, By Mouth, Daily, # 30 tablet, 0 Refills, Maintenance, 07/06/23 9:27:00 AM EDT, Tablet, [facility]/pharmacy #[id number], Partial fill upon patient request if the prescription is for a schedule II opioid drug., 154, cm, 07/06/23 9:09:00 EDT, Height, 47.3, kg, 04/27/23 8:11:00 EST, Dry Weight Start Date: 07/06/23 Status: Ordered Quantity: 30.0 Unit: tablet Repeat number: 1 Problem List Condition Confirmation Course Effective Dates Status H ealth Status Informant Allergic rhinitis Confirmed Active Asthma Confirmed Active Chronic kidney disease stage 3 due to type 2 diabetes mellitus Confirmed Active Contraception care Confirmed Active Diabetic retinopathy Confirmed Active Diabetic nephropathy Confirmed Active Hyperkalemia Confirmed Active Hyperlipidemia Confirmed Active Hypertensive disorder Confirmed Active Microalbuminuria Confirmed Active Situational mixed anxiety and depressive disorder Confirmed Active Perimenopause Confirmed Active Shoulder pain Confirmed Active Type 2 diabetes mellitus Confirmed Active Diagnosis Diagnosis Type Effective Dates Health Status Cl inical Service Informant Tick bite of right shoulder Discharge Diagnosis 07/20/24 Tick bite of abdominal wall Discharge Diagnosis 07/20/24 Rash Discharge Diagnosis 07/20/24 Vital Signs Most recent to oldest [Reference Range]: 1 Height 154 cm (07/20/24 12:26 PM) Oxygen Saturation [94-100 %] 100 % (07/20/24 12:26 PM) Pulse Rate [55-90 bpm] 74 bpm (07/20/24 12:26 PM) Blood Pressure [90-138/55-84 mm Hg] 174/ 80mm Hg *H* (07/20/24 12:26 PM) Respiratory Rate [16-30 br/min] 20 br/mi n (07/20/24 12:26 PM) Temperature [96.8-100.4 DegF] 97.0 DegF (07/20/24 12:26 PM) Temperature Route Temporal (07/20/24 12:26 PM) Social History Social History Type Response Smoking Status Never (less than 100 in lifetime) entered on: 08/17/18 Sex Sex Representation Female (finding) Note * Kaela Red: PERFORM Event Display: Patient Education/Instruction Authored Date: Ambulatory Adult Visit Summary [facility] [address] [place] [address] Name: MADISON CHAU : 1965?? Visit: 07/20/2024 12:09?? Ambulatory Visit Instructions ?? Your Care Team Primary Care Provider Amalia DAILEY, Davida León? This Visit Provider [facility] Your Diagnosis Tick bite of right shoulder Tick bite of abdominal wall Rash Vitals Signs Temperature: 97 DegF Height: 154 cm Pulse Rate: 74 bpm ?? Respiratory Rate: 20 br/min ?? Systolic Blood Pressure:??174 mm Hg??High ?? Diastolic Blood Pressure: 80 mm Hg ?? Oxygen Saturation: 100 % ?? What to do next Future Orders EBONY Screen - Routine, Once, 09/22/23 10:52:00 EDT, Order for Today, [facility], Blood?? Sedimentation Rate (ESR) - Routine, Once, 09/22/23 10:52:00 EDT, Order for Today, [facility], Blood?? C Reactive Protein (CRP) - Routine, Once, 09/22/23 10:52:00 EDT, Order for Today, [facility], Blood?? Potassium Level - Routine, Once, 09/23/23 9:11:00 EDT, Within 3 Days, [facility], Blood?? Iron + Iron Binding Capacity - Routine, Once, 09/24/23 11:50:00 EDT, Order for Today, [facility], Blood?? Ferritin - Routine, Once, 09/24/23 11:50:00 EDT, Order for Today, [facility], Blood?? Medications The list below reflects the information in our records and provided by you today along with any changes made during this visit. Please continue your medications until treatment is completed or stopped by your provider. If this is different from the information you have or there are other questions,please contact the prescribing provider. What How Much When Why Instructions New Triamcinolone Topical (triamcinolone 0.5% topical cream) 1 iliana Topically Twice a day Rash Duration: 14 Days Pickup at [facility]/pharmacy #[id number] Unchanged Azelastine Ophthalmic (azelastine 0.05% ophthalmic solution) 1 Drops Both eyes Twice a day as needed for for allergy symptoms Unchanged Cetirizine (ZyrTEC 10 mg oral tablet) 1 tab(s) Oral Daily Unchanged Durable Medical Equipment (Freestyle Lancets) See instructions E11.9 Test 4 times daily. Dispense 120 ?? Unchanged Estradiol Topical (Yuvafem 10 mcg vaginal tablet) See instructions INSERT 1 TABLET VAGINALLY TWICE A WEEK DIRECTED ?? Unchanged Ferrous Sulfate (Ferrous Sulfate ER) Unchanged Glimepiride (glimepiride 1 mg oral tablet) 2 tab(s) Oral Daily Unchanged Isopropyl Alcohol Topical (isopropyl alcohol 70% topical pad) See instructions USE DIRECTED TWICE A DAY ?? Unchanged linagliptin (Tradjenta 5 mg oral tablet) 1 tab(s) Oral Daily Unchanged Lisinopril (lisinopril 10 mg oral tablet) 1 tab(s) Oral Daily Unchanged Loratadine (loratadine 10 mg oral tablet) 1 tab(s) Oral Daily Unchanged Miscellaneous Rx Vitamin D + Magnesium citrate Oral Daily Unchanged Miscellaneous Rx (Alcohol 70% Prep Pads) See instructions use as directed twice a day for Type 2 Diabetes E11.9 ?? Unchanged Multivitamin With Minerals (One-A-Day Women 50 Plus) Oral Daily Unchanged Pravastatin (pravastatin 20 mg oral tablet) 1 tab(s) Oral Daily Pharmacy Information [facility]/pharmacy #[id number]: [address], [place] [id number] [phone] Medications and Immunizations Administered Medications Given During Visit Medication ?? Dose ?? Route ?? Last Dose Times ?? Doxycycline?200.00 mg?? By Mouth?? 20-JUL-2024 12:45:00.00?? Allergies (NKA means No Known Allergies) NKA Common Emergency Awareness Tips IS IT A STROKE? Act FAST and Check for these signs: FACE Does the face look uneven? ARM Does one arm drift down? SPEECH Does their speech sound strange? TIME Call at any sign of stroke ?? Heart Attack Signs Chest discomfort: Most heart attacks involve discomfort in the center of the chest and lasts more than a few minutes, or goes away and comes back. It can feel like uncomfortable pressure, squeezing, fullness or pain. Discomfort in upper body: Symptoms can include pain or discomfort in one or both arms, back, neck, jaw or stomach. Shortness of breath: With or without discomfort. Other signs: Breaking out in a cold sweat, nausea, or lightheaded. Remember, MINUTES DO MATTER. If you experience any of these heart attack warning signs, call to get immediate medical attention! ?? Smoking can increase your chances of developing chronic health problems and can cause harmful effects to other family members in your house. If you smoke, you are strongly encouraged to quit. Please call [employer] at [phone] or [phone] ([phone]) or log in to [email or web address] for referrals to smoking cessation programs. ?? The National Suicide Prevention Hotline is available 28/09 if you or someone you know needs to find a reason to keep living. By calling 9-286-366-alwp (3390) you'll be connected to a skilled, trained counselor at a crisis center in your area. [facility] You can view and manage your care through the patient portal or by using a health care iliana of your choosing. [employer] is a website that allows you to securely view your medical information including your hospital discharge summary, office visit summaries, medications and follow-up visits. You can also request appointments, renew medications, and request access to your medical information using a health care iliana of your choosing, or just ask a question. You can enroll at [email or web address] or register during your next office visit. [facility], in keeping with [facility] guidance, no longer requires face masks for staff, patientsor visitors in most situations. Similiar to time spent indoors at other locations, there is the chance that you were exposed to repiratory viruses during your time with us (such as flu or COVID-19). If you develop symptoms concerning for a viral respiratory infection, please seek testing (and treatment if indicated) from your medical provider or home test kit. ?? Disclaimer: The information provided is of a general nature and is intended to be used in conjunction with the recommendations and advice of your health care practitioner. Every effort has been made to ensure that the information provided is accurate and complete at the time it is provided to you however, as your needs change, or, as new information becomes available, different or additional instructions may be required. ?? If you have questions, please consult with your primary care provider or pharmacist, as appropriate. This information is not intended to serve as substitution for assessment and evaluation by a qualified health care provider. If you do not have a primary care provider, you may find a [facility] provider by calling [facility] at [phone]. * Bina De Dios: PERFORM Event Display: Patient Education Leaflets Authored Date: [id number] Poison Bambi or Poison [place] Rash ?? [id number] Poison Bambi or Poison [place] Rash You have a rash and itching. This is a delayed reaction to the oils of a poisonous plant. It was likely poison bambi or poison oak. An oil called urushiol is found in both poison bambi and poison oak. It's what causes the rash. Health care providers can't always tell which plant caused the rash unless you know for sure which plant you came into contact with. You likely came in contact with poison bambi or poison oak during the 3 days before your symptoms started. You are more likely to have the rash if you had this rash before. It may take 2 to 3 weeks before the rash appears if you have never had a rash from either plant before. Your skin will become red and itchy. Small blisters may appear. These can break and leak a clear yellow fluid. This fluid can't cause a rash in others who touch it. The reaction usually starts to go away after 1 to 2 weeks. But it may take 4 to 6 weeks to fully go away. Poison bambi leaves Poison oak leaves Home care Follow these guidelines when caring for yourself at home: ??? The plant oils still on your skin or clothes can be spread to other places on your body. They can also be passed to other people and cause a similar reaction. That???s why it???s important to wash all of the plant oils off your skin and under fingernails. Wash all clothes that you were wearing. Use hot water with regular laundry detergent. Dogs and cats that get into poison bambi may not get a rash, but the plant oils may be on their fur. Be sure to wash your pets too. Wear rubber gloves (such as dishwashing gloves) while rounding upand bathing your pet. ??? Don't use hdlv-xoz-asixrun antibiotic creams on the rash. Examples are neomycin and bacitracin. These may make the rash worse. ??? Stay away from anything that heats up yourskin. This includes hot showers, hot baths, and direct sunlight. These can make itching worse. ??? Don???t scratch the blisters. Bacteria from under your fingernails can get into them and cause an infection. ??? Put a cold compress on areas that are leaking (weeping) and on blistered areas. Do thisfor 30 minutes, 3 times a day. To make a compress, dip a washcloth in a mixture of 1 pint of cold water and 1 packet of astringent (aluminum acetate) or oatmeal bath powder (colloidal oatmeal, sold in pharmacies). Keep the solution in the refrigerator for future use. ??? You may take a lukewarm bath if large areas of your skin are affected. Add colloidal oatmeal to the water. Or you can add 1 cupof baking soda to the water. Both baking soda and colloidal oatmeal relieve minor irritation and itching. Aluminum acetate is an astringent that relieves rash. ??? Use hydrocortisone cream for redness and irritation for a rash in a smaller area. But don???t use this if another medicine was prescribed. For severe itching, put an ice pack on the area. To make an ice pack, put ice cubes in a plastic??bag that seals at the top. Wrap the bag in a??clean, thin??towel or cloth. Never put ice or an icepack directly on the skin. Icnm-ffl-vnaedta lotions that have calamine may also be helpful. Skin protectants, such as zinc acetate, zinc carbonate, zinc oxide, and calamine, can dry the oozing and weeping of poison bambi, poison oak, and poison sumac. ??? You can also use an oral antihistamine medicine with diphenhydramine for itching, unless another medicine was prescribed. This medicine may make you sleepy. So be cautious when using this medicine during the daytime and while driving or doing work involving heavy machinery. Don???t use medicine that has diphenhydramine if you have glaucoma. Also don't use it if you are a man with trouble urinating because of an enlarged prostate. Antihistamines with loratadine may cause less drowsiness. They may be a good choice for daytime use. ??? For severe cases, your provider may prescribe oral steroids, such as prednisone.??Always take these exactly as prescribed. ?? Follow-up care Follow up with your health care provider, or as advised. Call your provider if your rash gets worseor you are not starting to get better after 1 week of treatment. ?? Call 911 Call 911 if you have: ??? Trouble breathing or swallowing. ??? Severe swelling in your face, eyelids, mouth, throat, or tongue. ?? When to get medical advice Contact your health care provider or get medical care right away if you have: ??? A rash that spreads to the groin and causes swelling of the penis, scrotum, or vaginal area. ??? Trouble urinating because of swelling in the genital area. ??? Itching that gets worse or keeps you awake at night. Also call your provider right away if you have signs of infection in the areas of broken blisters, such as: ??? Spreading redness. ??? Pus or fluid draining from the blisters. ??? Yellow-brown crustsforming over the open blisters. ??? A fever of 100.4??F (38??C) or higher, or as directed by your health care provider. ?? Last Reviewed Date: 2024 00:00:00 ?? [employer]. All rights reserved. This information is not intended as a substitute for professional medical care. Always follow your healthcare professional's instructions. ?? * Bina De Dios: PERFORM Event Display: Patient Education Leaflets Authored Date: [id number] Tick Bites ?? [address]29 Tick Bites Ticks are small arachnids that feed on the blood of rodents, rabbits, birds, deer, dogs, and people. A tick bite may cause redness, itching, and slight swelling at the site. Sometimes you may have noreaction where the tick bit you. Ticks spread disease when microbes in their saliva get into your skin and blood. There are more than 800 species of ticks. But many aren't known to spread disease to humans. Ticks often spread a disease near the end of a meal. The hard ticks tend to attach and feed for hours or days. It may take hours before a hard tick transmits microbes. Soft ticks often feed for less than 1 hour and can spreaddiseases quickly. Lyme disease is the most common tick-borne disease. But there are at least 20 different infections that are transmitted by ticks in the [place] Symptoms of tick-related diseases vary depending on the disease. The most common symptoms are: ??? Fever ??? Chills ??? Aches and pains such as headache, extreme tiredness (fatigue), and muscle aches ??? Joint pain (with Lyme disease) ??? Rash How to remove a tick If you find a tick, don't panic. Simply remove it as soon as possible. ??? Try to carefully remove the tick with fine-tipped tweezers. ??? Grasp the tick near its head asclose to the skin???s surface as possible. Pull without twisting and don't crush the body. ??? After removing the tick, thoroughly clean the bite area and your hands with rubbing alcohol or soap and water. ??? Put a live tick in alcohol, or in a sealed bag or container. Or flush it down the toilet. You may want to know if the tick that bit you is carrying a disease such as Lyme's. In many states and [facility] you can send the tick to a local lab for analysis. ?? When to get medical care If you can't easily remove the tick or if you leave the head in your skin, get medical care right away. Tick paralysis is a rare disease thought to be caused by a toxin in tick saliva. The symptoms include: ??? Weakness that starts in legs and progresses rapidly ??? Paralysis ??? Breathing problems ??? Numbness If you or someone bitten by a tick has these symptoms, get medical care right away. Removing the tick stops the symptoms in about 24 hours. If you have a rash, aches, and pains, or fever within a few weeks of removing a tick, see your healthcare provider. Tell the provider about your recent tick bite, when the bite occurred, and where you most likely acquired the tick. ??? To prevent disease, you may be given antibiotics. Both Lyme disease and [place]rae-[place] spotted fever respond quickly to these medicines. ??? You may be asked to see your healthcare provider for a blood test. This is to check for Lyme or another tick-related disease. ?? Follow-up care Some [facility] and [facility] have services that test ticks for??Lyme disease and other diseases. Check with your local officials to see if this service is available in your area. If you remove a tick yourself, watch for signs of a tick-borne illness. Symptoms may show up in a few days or weeks after a bite. Call your healthcare provider if you notice any of these: ??? Rash. This may spread outward in a ring from a hard, white lump. Or it may move up your arms and legs to your chest. ??? Fever of 100.4??F (38??C) or higher, or as advised by your provider ??? Chills ??? Body aches, joint swelling, and pain ??? Severe headache ?? Last Reviewed Date: 2023 00:00:00 ?? 3270-8083 [employer]. All rights reserved. This information is not intended as a substitute for professional medical care. Always follow your healthcare professional's instructions. ?? Patient Care team information Care Team Personnel Name: Amalia DAILEY, Davida León Position: [facility] PC[facility] Associate Professional Member Role: PCP Address: [address] [place] [address] Telecom: Care Team Related Persons Name: JARRETT CHAU Insurance Providers Guarantor name: MADISON CHAU Health Plan Information #: 1 Payer: [employer] [facility] [employer] Member Number: [id number] Policy Number: NA Group Number: [id number] Health Plan Information #: 2 Payer: [employer] Member Number: [id number] Policy Number: NA Group Number: NA
== END 2024-08-02 09:47 | disposition home or self-care (01) ==
LOC: HO.ENCR 09:09
PROVIDERS: PCP Nurse Practitioner Gerontology; Visit Provider Internal Medicine
DX: E11.21 Type 2 diabetes mellitus with diabetic nephropathy (principal); E11.319 Type 2 diabetes mellitus with unspecified diabetic retinopathy without macular edema; Z79.4 Long term (current) use of insulin; E11.65 Type 2 diabetes mellitus with hyperglycemia

== ENCOUNTER → 2024-08-02 09:08 | Outpatient (BNVA) | payer OTHER, SELFPAY | PROVIDERS: PCP Nurse Practitioner Gerontology; Visit Provider Internal Medicine | DX: E11.21 Type 2 diabetes mellitus with diabetic nephropathy (principal); E11.65 Type 2 diabetes mellitus with hyperglycemia; E11.22 Type 2 diabetes mellitus with diabetic chronic kidney disease; E11.319 Type 2 diabetes mellitus with unspecified diabetic retinopathy without macular edema; N18.30 Chronic kidney disease, stage 3 unspecified; Z79.4 Long term (current) use of insulin; Z79.899 Other long term (current) drug therapy | CPT/HCPCS: 82947; 83036; 99212 ==